=== PATIENT | male | born 1960 | race Caucasian/White ===

== ENCOUNTER 2021-05-17 11:20 | Emergency (ER) | payer MEDICARE, SELFPAY ==
[2021-05-17 11:32] VITALS: BP 159/72; PULSE 60; RESP 20; TEMP 36.7; O2SAT 99
[2021-05-17 11:37] VITALS: BP 159/72; PULSE 60; RESP 20; TEMP 36.7; O2SAT 99
--- NOTE | 2021-05-17 11:57 | ED.GENADULT ---
HPI - General Adult General Chief complaint: Ear Stated complaint: Dizziness,Left Ear Irritation Time Seen by Provider: 05/17/21 11:48 Source: patient, family and RN notes reviewed Mode of arrival: ambulatory Limitations: no limitations History of Present Illness HPI narrative: Patient presents today complaining of dull left ear pain since yesterday that was intermittent with muffled hearing. Pain is worse when he bent down to paint some cabinets. He has also been experiencing some intermittent dizziness that is worse when he lays down over the last 2 days. He has also been experiencing some sinus congestion and drainage over the past 10 days. He has been taking some DayQuil without much relief. Currently rates his ear pain 05/14. MD complaint: Left ear pain, dizziness, congestion Related Data Home Medications Medication Instructions Recorded Confirmed azathioprine 50 mg PO DAILY 05/17/21 05/17/21 benazepril 40 mg PO DAILY 05/17/21 05/17/21 diltiazem HCl 120 mg PO DAILY 05/17/21 05/17/21 hydrochlorothiazide 25 mg PO DAILY 05/17/21 05/17/21 indomethacin 50 mg PO DAILY 05/17/21 05/17/21 Allergies Allergy/AdvReac Type Severity Reaction Status Date / Time iodine Allergy Severe Anaphylactic Verified 05/17/21 11:33 Shock Review of Systems Review of Systems: CONSTITUTIONAL: Denies body aches, fever, chills, or sweats. EYES: Denies visual changes, redness, or discharge. ENT: Denies rhinorrhea, sore throat. + Left ear pain, congestion CARDIOVASCULAR: Denies chest pain, palpitations, or edema. RESPIRATORY: Denies cough or dyspnea. GASTROINTESTINAL: Denies abdominal pain, nausea, vomiting, or diarrhea. GENITOURINARY: Denies dysuria or hematuria. SKIN: Denies rash, itching, or wounds. MUSCULOSKELETAL: Denies back pain, joint pain, or myalgia. NEUROLOGIC: Denies headache, numbness, tingling, or weakness.+ Dizziness PSYCH: Denies depression or anxiety. [facility] Past Medical History Medical History (Updated 05/17/21 @ 12:04 by Halina Paredes, [employer], ) Hypertension Comments At time of signature, I have reviewed and agree with nursing past medical, surgical, social and family history unless otherwise noted. Please see nursing chart for further information. There is no relevant family history pertinent to the presenting complaint Exam Narrative: GENERAL: Well-appearing, well-nourished, and in no acute distress. HEAD: Normocephalic, atraumatic. EYES: EOMI. No redness or drainage. Conjunctivae normal. ENT: Mucous membranes pink and moist. Nares congested. No rhinorrhea. TMs normal bilaterally. Left-sided middle ear effusion without evidence of infection. Uvula midline. Nontender sinuses. NECK: Normal AROM. Supple. No lymphadenopathy. CHEST: No respiratory distress. Clear to auscultation. HEART: Regular rate and rhythm. No murmur appreciated. Normal peripheral pulses. EXTREMITIES: Normal range of motion. No edema. SKIN: Warm, dry, no rash. Capillary refill normal. Normal skin turgor. NEURO: No focal deficits. Alert and oriented x3. Gait steady. PSYCH: Normal affect. No signs of depression or anxiety. Course Course Level of Care: Express Care Visit Vital Signs Vital signs: Vital Signs Temperature 98.1 F 05/17/21 11:32 Pulse Rate 60 05/17/21 11:32 Respiratory Rate 20 05/17/21 11:32 Blood Pressure 159/72 H 05/17/21 11:32 Pulse Oximetry 99 05/17/21 11:32 Temperature 98.1 F 05/17/21 11:37 Pulse Rate 60 05/17/21 11:37 Respiratory Rate 20 05/17/21 11:37 Blood Pressure 159/72 H 05/17/21 11:37 Pulse Oximetry 99 05/17/21 11:37 Reviewed. Pt has been instructed to follow up with his PCP regarding his elevated blood pressure today. Medical Decision Making Differential Diagnosis Differential Diagnosis: Vertigo, otitis media, otitis externa, ruptured TM, serous otitis, URI, sinusitis Vital Signs Vital Signs: Vital Signs Temperature 98.1 F 05/17/21 11:32 Pulse Rate 60
[2021-05-17 13:39] VITALS: BP 159/72; PULSE 60; RESP 18; TEMP 36.7; O2SAT 99
== END 2021-05-17 12:10 | disposition home or self-care (01) ==
PROVIDERS: Emergency Provider Nurse Practitioner; PCP Family Medicine
DX: H65.02 Acute serous otitis media, left ear (principal); J01.90 Acute sinusitis, unspecified; I10 Essential (primary) hypertension
CPT/HCPCS: 99213; G0463